=== PATIENT | male | born 1970 | race American Indian/Alaskan Native ===

== ENCOUNTER 2016-11-27 22:28 | Emergency (ER) | payer MEDICARE, BC ==
[2016-11-27 22:29] VITALS: BMI 34.5
[2016-11-27 22:56] VITALS: RESP 18; O2SAT 98
[2016-11-27] MEDS ORDERED: DiphenhydrAMINE 50 mg/ml Inj IVP STA ×2 (22:58→23:40)
[2016-11-27] MEDS ORDERED: DiphenhydrAMINE 50 mg/ml Inj ONE ×2 (23:00→23:37)
[2016-11-27 23:07] VITALS: BP 160/88; PULSE 92
[2016-11-27 23:08] LABS: BASO % 0.7 % (0.0-2.0); EOS # 0.5 K/uL (0.0-0.7); EOS % 8.7 % (0.0-4.0); HEMATOCRIT 29.2 % (35.0-51.0); LYMPH % 15.6 % (20.0-40.0); MEAN CORPUSCULAR HEMOGLOBIN 27.2 pg (27.0-31.0); MEAN CORPUSCULAR HGB CONC 31.9 g/dL (33.0-37.0); MEAN PLATELET VOLUME 7.6 fL (7.2-11.7); MONO # 0.6 K/uL (0.0-0.8); MONO % 10.1 % (0.0-10.0); RED CELL DISTRIBUTION WIDTH 17.8 % (11.5-14.5); WHITE BLOOD COUNT 6.1 K/uL (4.8-10.8)
[2016-11-27 23:09] LABS: MEAN CELL VOLUME 85.2 fL (80.0-94.0)
--- NOTE | 2016-11-27 23:14 | C.PDOC ---
History Of Present Illness 46 y/o male PMHx of HTN, diabetes, gastritis, renal failure, s/p renal transplants in 2009 which failed and caused the patient to go back on the hemodialysis. This evening the patient was watching a football game with his daughter and had a sudden onset of abdominal pain with nausea. He has no vomiting or diarrhea and is not feverish. He notes having similar episode of these symptoms in the past, claiming that the only thing that works for his pain is IV Dilaudid and Benadryl. He had multiple ED visits at both [facility] and [facility] with the same complaint over the past 10 days. When he was not given IV narcotics he either eloped or left AMA. He is insistent on receiving IV Dilaudid tonight. He gets dialysis MWF and did have it yesterday. Time Seen by Provider: 11/27/16 22:42 Chief Complaint (Nursing): Shortness Of Breath History Per: Patient History/Exam Limitations: no limitations Onset/Duration Of Symptoms: Days Current Symptoms Are (Timing): Still Present Quality: "Pain" Associated Symptoms: denies: Fever, Chills, Dizziness Past Medical History Reviewed: Historical Data, Nursing Documentation, Vital Signs Vital Signs: Last Vital Signs Temp 98.2 F 11/27/16 23:49 Pulse 92 H 11/27/16 23:06 Resp 18 11/27/16 23:06 BP 160/88 H 11/27/16 23:06 Pulse Ox 98 11/28/16 00:09 - Medical History PMH: Diabetes, Gastritis, HTN, Chronic Kidney Disease Denies: Depression Surgical History: Cholecystectomy - [facility] Procedures ESOPHAGOGASTRODUODENOSCOPY [EGD] W/CLOSED BIOPSY (01/17/13) INJECT/INFUSE ELECTROLYT (01/03/13) INJECT/INFUSE NEC (02/01/13) Family History: States: Unknown Family Hx - Social History Hx Tobacco Use: No Hx Alcohol Use: No Hx Substance Use: No - Immunization History Hx Tetanus Toxoid Vaccination: No Hx Influenza Vaccination: Yes Hx Pneumococcal Vaccination: Yes Review Of Systems Except As Marked, All Systems Reviewed And Found Negative. Constitutional: Negative for: Fever, Chills Gastrointestinal: Positive for: Abdominal Pain. Negative for: Nausea, Vomiting Physical Exam - Physical Exam Appears: Non-toxic, Other (agitated while requesting narcotic pain medications ) Skin: Normal Color, Warm, Dry Head: Atraumatic, Normacephalic Oral Mucosa: Moist Neck: Supple Chest: Symmetrical, Tenderness Cardiovascular: Rhythm Regular Respiratory: Normal Breath Sounds Gastrointestinal/Abdominal: Bowel Sounds (hypoactive ), No Tenderness, No Guarding, No Rebound Extremity: Normal ROM Neurological/Psych: Oriented x3, Normal Speech, Normal Cognition Gait: Steady ED Course And Treatment - Laboratory Results Result Diagrams: 11/27/16 23:05 11/27/16 23:05 Lab Interpretation: No Acute Changes O2 Sat by Pulse Oximetry: 98 (RA) Progress Note: The patient received EKG and blood work. Reglan, Zofran, benadryl were administered to the patient. He refused xrays. He refused IM bentyl stating "that never works for me. The only thing that works is IV Dilaudid". He has PO Dilaudid at home but is insisting on IV administration because "if he takes extra medication at home he'll "use it up and won't be able to get a refill". He is in no distress and is extremely argumentative, insisting that we are not being fair not giving him the Dilaudid. He was advised to follow up with his pain management doctor. Patient left prior to receiving discharge instructions. Disposition Counseled Patient/Family Regarding: Studies Performed, Diagnosis, Need For Followup - Disposition Disposition: HOME/ ROUTINE Disposition Time: 00:21 Condition: FAIR Forms: [employer] (Greenlandic) - Clinical Impression Clinical Impression: Diabetic gastroparesis associated with type 2 diabetes mellitus, Abdominal pain - Scribe Statement The provider has reviewed the documentation as recorded by the Matthew (Myriam Euceda) Provider Attestation: All medical record entries made by the Gailibfroylan were at my direction and personally dictated by me. I have reviewed the chart and agree that the record accurately reflects my personal performance of the history, physical exam, medical decision making, and the department course for this patient. I have also personally directed, reviewed, and agree with the discharge instructions and disposition.
[2016-11-27 23:17] LABS: POTASSIUM 4.5 mmol/L (3.6-5.2)
[2016-11-27 23:19] LABS: ALB/GLOB RATIO 0.9 (1.0-2.1); BILIRUBIN,TOTAL 0.6 mg/dL (0.2-1.3)
[2016-11-27 23:20] LABS: CALCIUM 9.3 mg/dl (8.6-10.4)
[2016-11-27 23:49] VITALS: TEMP 98.2
--- NOTE | 2016-11-29 08:03 | CARD ---
APPROVED REPORT EKG Measurement Heart [id number] NC 152P43 [id number] <Conclusion> Normal sinus rhythm Nonspecific T wave abnormality Prolonged QT Abnormal ECG
== END 2016-11-27 23:55 | disposition home or self-care (01) ==
LOC: C.ER 22:28
DX: E11.43 Type 2 diabetes mellitus with diabetic autonomic (poly)neuropathy (principal); K31.84 Gastroparesis; R10.9 Unspecified abdominal pain
CPT/HCPCS: 80053; 83690; 85025; 93005; 96374; 96375; 96376; 99285; J1200; J2405; J2765

== ENCOUNTER 2016-12-15 19:54 | Emergency (ER) | payer MEDICARE, BC ==
[2016-12-15 19:54] VITALS: BMI 34.5
[2016-12-15 20:06] VITALS: BP 176/95; PULSE 97; RESP 24; TEMP 97.6; O2SAT 100
[2016-12-15 21:03] LABS: POTASSIUM 3.9 mmol/L (3.6-5.2)
[2016-12-15 21:05] LABS: BASO # 0.1 K/uL (0.0-0.2); BASO % 1.3 % (0.0-2.0); BILIRUBIN,TOTAL 0.6 mg/dL (0.2-1.3); EOS # 0.4 K/uL (0.0-0.7); EOS % 7.1 % (0.0-4.0); HEMATOCRIT 26.1 % (35.0-51.0); LYMPH # 0.7 K/uL (1.0-4.3); LYMPH % 13.2 % (20.0-40.0); MEAN CELL VOLUME 84.2 fL (80.0-94.0); MEAN CORPUSCULAR HEMOGLOBIN 28.6 pg (27.0-31.0); MEAN PLATELET VOLUME 7.4 fL (7.2-11.7); MONO # 0.6 K/uL (0.0-0.8); MONO % 10.8 % (0.0-10.0); RED CELL DISTRIBUTION WIDTH 18.5 % (11.5-14.5); TOTAL PROTEIN 7.1 g/dL (6.3-8.3); WHITE BLOOD COUNT 5.4 K/uL (4.8-10.8)
[2016-12-15 21:06] LABS: CALCIUM 8.5 mg/dl (8.6-10.4)
--- NOTE | 2016-12-15 21:37 | C.PDOC ---
History Of Present Illness Patient is a Thursday, Thursday, Thursday dialysis patient who presents to the ER requesting pain medication. Patient was seen and admitted in [facility] today, where he had a negative work up, but signed out AMA because they were decreasing his pain medication. Patient was found to have 10 prescriptions from 10 different providers over the last few months. Denies fever or chills. Time Seen by Provider: 12/15/16 21:37 Chief Complaint (Nursing): Shortness Of Breath History Per: Patient History/Exam Limitations: no limitations Onset/Duration Of Symptoms: Hrs Current Symptoms Are (Timing): Still Present Initiating Event: Other (Not known) Current Respiratory Medications: None Severity: None Pain Scale Rating Of: 0 Associated Symptoms: denies: Fever, Chills Recent travel outside of the [place]: No Past Medical History Reviewed: Historical Data, Nursing Documentation, Vital Signs Vital Signs: Last Vital Signs Temp 97.6 F 12/15/16 20:04 Pulse 97 H 12/15/16 20:04 Resp 24 12/15/16 20:04 BP 176/95 H 12/15/16 20:04 Pulse Ox 100 12/15/16 22:08 - Medical History PMH: Diabetes, Gastritis, HTN, Chronic Kidney Disease Surgical History: Cholecystectomy - [facility] Procedures ESOPHAGOGASTRODUODENOSCOPY [EGD] W/CLOSED BIOPSY (01/17/13) INJECT/INFUSE ELECTROLYT (01/03/13) INJECT/INFUSE NEC (02/01/13) Family History: States: No Known Family Hx - Social History Hx Tobacco Use: No Hx Alcohol Use: No Hx Substance Use: No - Immunization History Hx Tetanus Toxoid Vaccination: No Hx Influenza Vaccination: Yes Hx Pneumococcal Vaccination: Yes Review Of Systems Constitutional: Negative for: Fever, Chills Gastrointestinal: Negative for: Nausea, Vomiting, Diarrhea Physical Exam - Physical Exam Appears: Non-toxic, No Acute Distress, Other (Awake, alert) Skin: Warm, Dry Head: Normacephalic Oral Mucosa: Moist Chest: Other (PICC line to left side) Cardiovascular: Rhythm Regular Respiratory: No Rales, No Rhonchi, No Wheezing Gastrointestinal/Abdominal: Soft, No Tenderness Extremity: Other (Shunt to right arm) Pulses: Left Radial: Normal, Right Radial: Normal Neurological/Psych: Oriented x3 ED Course And Treatment - Laboratory Results Result Diagrams: 12/15/16 20:48 12/15/16 20:48 O2 Sat by Pulse Oximetry: 100 (Room air) Pulse Ox Interpretation: Normal Progress Note: EKG and blood work ordered. Benadryl administered. went to re- examine the patient, but patient had eloped Disposition Counseled Patient/Family Regarding: Studies Performed, Diagnosis - Disposition Referrals: Non [facility] Provider, [Primary Care Provider] - Disposition: ELOPEMENT - ER ONLY Disposition Time: 21:37 Condition: FAIR Forms: [employer] ([place]oran) - Clinical Impression Clinical Impression: Pain - Scribe Statement The provider has reviewed the documentation as recorded by the Scribe Red Bell All medical record entries made by the Scribe were at my direction and personally dictated by me. I have reviewed the chart and agree that the record accurately reflects my personal performance of the history, physical exam, medical decision making, and the department course for this patient. I have also personally directed, reviewed, and agree with the discharge instructions and disposition.
[2016-12-15] MEDS ORDERED: DiphenhydrAMINE 50 mg/ml Inj IVP STA ×2 (21:40→21:55)
[2016-12-15] MEDS ORDERED: DiphenhydrAMINE 50 mg/ml Inj ONE ×2 (21:44→22:00)
--- NOTE | 2016-12-16 15:00 | CARD ---
APPROVED REPORT EKG Measurement Heart [id number] CO 170P44 [id number] <Conclusion> Normal sinus rhythm Prolonged QT Abnormal ECG
== END 2016-12-15 21:37 | disposition left against medical advice (07) ==
LOC: C.ER 19:54 → SUPCPDRO 19:54 → C.ER 21:37
DX: R52 Pain, unspecified (principal); I12.9 Hypertensive chronic kidney disease with stage 1 through stage 4 chronic kidney disease, or unspecified chronic kidney disease; E11.22 Type 2 diabetes mellitus with diabetic chronic kidney disease; N18.9 Chronic kidney disease, unspecified; Z99.2 Dependence on renal dialysis
CPT/HCPCS: 80053; 82150; 83690; 84484; 85025; 93005; 96374; 99284; J1200